=== PATIENT | male | born 1990 | race Hispanic/Latino ===

== ENCOUNTER 2016-12-29 21:44 | Emergency (ER) | payer MEDICAID ==
--- NOTE | 2016-12-30 02:34 | Cat Scan Report ---
FINAL REPORT PROCEDURE: CT HEAD/BRAIN WO CON TECHNIQUE: Computerized tomography of the head was performed without contrast material. HISTORY: fell hit head COMPARISON: No prior studies are available for comparison. FINDINGS: Skull and scalp: Normal. Paranasal sinuses: Normal. Ventricles and subarachnoid spaces: Normal. Cerebrum: No evidence of hemorrhage, acute infarction or mass . Cerebellum and brainstem: No evidence of hemorrhage, acute infarction or mass. Vasculature: Normal. Comments: None. IMPRESSION: Normal Examination
--- NOTE | 2016-12-30 09:18 | Emergency Department Report ---
ED Head Trauma HPI - General Chief complaint: Head Injury Stated complaint: LACERATION TO BACK OF HEAD Time Seen by Provider: 12/30/16 09:14 Source: patient Mode of arrival: Ambulatory Limitations: No Limitations - History of Present Illness Initial comments: Patient states he fell off his skateboard hitting the back of his head. There was no loss of consciousness but he complained of nausea vomiting and weakness per the triage note. He was thereby scanned prior to my arrival. He's been resting comfortably ever since. He is not complaining of headache now or any other complaints. He denies any neck discomfort or other injury. He is no longer nauseated. He does not know when his last tetanus shot was. MD Complaint: head injury -: Gradual Mechanism of Injury: sports related injury Location: occipital Loss of Consciousness: no Previous Trauma to this Area: No Place: outdoors Radiation: none Consistency: now resolved Provoking factors: none known Other Injuries: none Associated Symptoms: denies other symptoms (except as above indicated) - Related Data Home Medications Medication Instructions Recorded Confirmed Last Taken Abilify TAB 300 mg PO DAILY 12/30/16 12/30/16 Unknown Previous Rx's Medication Instructions Recorded Last Taken Type HYDROcodone/APAP 10-325 [[place] 1 each PO Q4-6H PRN #12 tablet 03/27/14 Unknown Rx 10-325 mg TAB] Allergies/Adverse reactions: Allergies Allergy/AdvReac Type Severity Reaction Status Date / Time Sulfa (Sulfonamide Allergy Hives Verified 03/27/14 11:21 Antibiotics) ED Review of Systems ROS: Stated complaint: LACERATION TO BACK OF HEAD Other details as noted in HPI Constitutional: denies: chills, fever Eyes: denies: eye pain, eye discharge, vision change ENT: denies: ear pain, throat pain Respiratory: denies: cough, shortness of breath, wheezing Cardiovascular: denies: chest pain, palpitations Endocrine: no symptoms reported Gastrointestinal: nausea. denies: abdominal pain, diarrhea Genitourinary: denies: urgency, dysuria Musculoskeletal: denies: back pain, joint swelling, arthralgia Skin: denies: rash, lesions Neurological: denies: headache, weakness, paresthesias Psychiatric: denies: anxiety, depression Hematological/Lymphatic: denies: easy bleeding, easy bruising ED Past Medical Hx - Past Medical History Previous Medical History?: Yes Hx Psychiatric Treatment: Yes (Depression) - Surgical History Past Surgical History?: Yes Additional Surgical History: Pins in left finger - Social History Smoking Status: Former Smoker Substance Use Type: None - Medications Home Medications: Home Medications Medication Instructions Recorded Confirmed Last Taken Type HYDROcodone/APAP 10-325 [[place] 1 each PO Q4-6H PRN #12 tablet 03/27/14 Unknown Rx 10-325 mg TAB] Abilify TAB 300 mg PO DAILY 12/30/16 12/30/16 Unknown History ED Physical Exam - General Limitations: No Limitations General appearance: alert, in no apparent distress - Head Head exam: Present: normocephalic, other (there is a small amount of coagulated blood over the wound of the occipital scalp measuring a few millimeters. I do not palpate any laceration or depression.) - Eye Eye exam: Present: normal appearance, PERRL, EOMI. Absent: scleral icterus - ENT ENT exam: Present: normal exam, mucous membranes moist - Neck Neck exam: Present: normal inspection - Respiratory Respiratory exam: Present: normal lung sounds bilaterally. Absent: respiratory distress - Cardiovascular Cardiovascular Exam: Present: regular rate, normal rhythm. Absent: systolic murmur, diastolic murmur, rubs, gallop - GI/Abdominal GI/Abdominal exam: Present: soft, normal bowel sounds. Absent: distended, tenderness, guarding, rebound, rigid - Rectal Rectal exam: Present: deferred - Extremities Exam Extremities exam: Present: normal inspection - Back Exam Back exam: Present: normal inspection - Neurological Exam Neurological exam: Present: alert, oriented X3, CN II-XII intact, normal gait. Absent: motor sensory deficit - Psychiatric Psychiatric exam: Present: normal affect, normal mood - Skin Skin exam: Present: warm, dry, intact, normal color. Absent: rash ED Course Vital Signs 12/29/16 12/30/16 12/30/16 22:04 03:27 07:47 Temperature 97.8 F 98.4 F Pulse Rate 100 H 75 Respiratory 18 18 16 Rate Blood Pressure 108/73 141/92 Blood Pressure [Right] O2 Sat by Pulse 95 100 Oximetry 12/30/16 07:50 Temperature 97.7 F Pulse Rate 66 Respiratory 16 Rate Blood Pressure Blood Pressure 133/77 [Right] O2 Sat by Pulse 97 Oximetry Critical care attestation.: If time is entered above; I have spent that time in minutes in the direct care of this critically ill patient, excluding procedure time. ED Disposition Clinical Impression: Scalp contusion Qualifiers: Encounter type: initial encounter Qualified Code(s): S00.03XA - Contusion of scalp, initial encounter Disposition: TO HOME OR SELFCARE Is pt being admited?: No Does the pt Need Aspirin: No Condition: Stable Instructions: Minor Head Injury (ED), Abrasion (ED) Additional Instructions: Return any acute change or problem. Follow-up with her primary care provider. Referrals: PRIMARY CARE, [Primary Care Provider] - 3-5 Days Time of Disposition: 09:22
[2016-12-30] MEDS ORDERED: BOOSTRIX IM ONE (09:22)
[2016-12-30 09:52] VITALS: BP 117/71
== END 2016-12-30 09:45 | disposition home or self-care (01) ==
LOC: ED 21:44
DX: S00.03XA Contusion of scalp, initial encounter (principal); F32.9 Major depressive disorder, single episode, unspecified; Z87.891 Personal history of nicotine dependence; Z88.2 Allergy status to sulfonamides; W18.09XA Striking against other object with subsequent fall, initial encounter; Y93.73 Activity, racquet and hand sports; Y92.39 Other specified sports and athletic area as the place of occurrence of the external cause; Y99.8 Other external cause status
CPT/HCPCS: 70450; 90471; 90715

== ENCOUNTER 2020-11-19 10:29 | Emergency (ER) | payer MEDICAID ==
[2020-11-19 11:04] VITALS: BP 126/75
--- NOTE | 2020-11-19 11:50 | Emergency Department Report ---
ED General Adult HPI - General Chief complaint: Upper Respiratory Infection Stated complaint: SEVERE SINUSES, MIGRAINE Time Seen by Provider: 11/19/20 11:38 Source: patient Mode of arrival: Ambulatory Limitations: No Limitations - History of Present Illness Initial comments: Patient is a 30-year-old male presents emergency room with complaints of a poss ible sinus infection that began 2 weeks ago. He has associated sinus pressure, pain behind right eye, rhinorrhea, congestion. He denies any fever, vomiting, diarrhea, vision changes, cough, shortness of breath. Past medical history of depression. Allergy to sulfa. - Related Data Home Medications Medication Instructions Recorded Confirmed Last Taken Abilify TAB 300 mg PO DAILY 12/30/16 12/30/16 Unknown Previous Rx's Medication Instructions Recorded Last Taken Type HYDROcodone/APAP 10-325 [[place] 1 each PO Q4-6H PRN #12 tablet 03/27/14 Unknown Rx 10-325 mg TAB] Amoxicillin/Potassium Clav 1 each PO BID 10 Days #20 tablet 11/19/20 Unknown Rx [Augmentin 500-125 Tablet] Fluticasone [Flonase] 1 spray NS QDAY #1 bottle 11/19/20 Unknown Rx guaiFENesin ER [Mucinex ER] 600 mg PO Q12H #14 tablet.er 11/19/20 Unknown Rx Allergies Allergy/AdvReac Type Severity Reaction Status Date / Time Sulfa (Sulfonamide Allergy Hives Verified 11/19/20 11:00 Antibiotics) ED Review of Systems ROS: Stated complaint: SEVERE SINUSES, MIGRAINE Other details as noted in HPI Comment: All other systems reviewed and negative ED Past Medical Hx - Past Medical History Hx Psychiatric Treatment: Yes (Depression) - Surgical History Additional Surgical History: Pins in left finger - Social History Smoking Status: Never Smoker Substance Use Type: None - Medications Home Medications: Home Medications Medication Instructions Recorded Confirmed Last Taken Type HYDROcodone/APAP 10-325 [[place] 1 each PO Q4-6H PRN #12 tablet 03/27/14 Unknown Rx 10-325 mg TAB] Abilify TAB 300 mg PO DAILY 12/30/16 12/30/16 Unknown History Amoxicillin/Potassium Clav 1 each PO BID 10 Days #20 tablet 11/19/20 Unknown Rx [Augmentin 500-125 Tablet] Fluticasone [Flonase] 1 spray NS QDAY #1 bottle 07/13/21 Unknown Rx guaiFENesin ER [Mucinex ER] 600 mg PO Q12H #14 tablet.er 11/19/20 Unknown Rx ED Physical Exam - General Limitations: No Limitations General appearance: alert, in no apparent distress - Head Head exam: Present: atraumatic, normocephalic - Eye Eye exam: Present: normal appearance - ENT ENT exam: Present: normal orophraynx, mucous membranes moist, TM's normal bilaterally, normal external ear exam, other (mucus drainage present in the right naris, there is right frontal sinus ttp) - Respiratory Respiratory exam: Present: normal lung sounds bilaterally. Absent: respiratory distress, wheezes, rales, rhonchi, stridor, chest wall tenderness, accessory muscle use, decreased breath sounds, prolonged expiratory - Cardiovascular Cardiovascular Exam: Present: regular rate, normal rhythm, normal heart sounds. Absent: systolic murmur, diastolic murmur, rubs, gallop - Neurological Exam Neurological exam: Present: alert, oriented X3 - Psychiatric Psychiatric exam: Present: normal affect, normal mood - Skin Skin exam: Present: warm, dry, intact ED Course Vital Signs 11/19/20 11:02 Temperature 99.0 F Pulse Rate 76 Respiratory 20 Rate Blood Pressure 126/75 O2 Sat by Pulse 100 Oximetry ED Medical Decision Making - Medical Decision Making Patient is a 30-year-old male presents emergency room with complaints of a possible sinus infection that began 2 weeks ago. He has associated sinus pressure, pain behind right eye, rhinorrhea, congestion. He denies any fever, vomiting, diarrhea, vision changes, cough, shortness of breath. Past medical history of depression. Allergy to sulfa. Vitals are normal. On exam:mucus drainage present in the right naris, there is right frontal sinus ttp. Examination appears consistent with acute sinusitis, symptoms have been ongoing greater than 10 days, will cover patient with antibiotics. Advised patient Please take medication as prescribed. Please follow-up with a primary care doctor. Return to emergency room for any new or worsening symptoms. Critical care attestation.: If time is entered above; I have spent that time in minutes in the direct care of this critically ill patient, excluding procedure time. ED Disposition Clinical Impression: Acute sinusitis Qualifiers: Sinusitis location: frontal Recurrence: non-recurrent Qualified Code(s): J01.10 - Acute frontal sinusitis, unspecified Disposition: DC-01 TO HOME OR SELFCARE Is pt being admited?: No Does the pt Need Aspirin: No Condition: Stable Instructions: Sinusitis, Adult, [id number] Additional Instructions: Please take medication as prescribed. Please follow-up with a primary care doctor. Return to emergency room for any new or worsening symptoms. Prescriptions: Amoxicillin/Potassium Clav [Augmentin 500-125 Tablet] 1 each PO BID 10 Days #20 tablet Fluticasone [Flonase] 1 spray NS QDAY #1 bottle guaiFENesin ER [Mucinex ER] 600 mg PO Q12H #14 tablet.er Referrals: AWA MASSEY MD [Staff Physician] - 3-5 Days [facility] [Provider Group] - 3-5 Days Forms: Work/School Release Form(ED) Time of Disposition: 11:48 Print Language: KOREAN
== END 2020-11-19 12:38 | disposition home or self-care (01) ==
LOC: ED 10:29
DX: J01.90 Acute sinusitis, unspecified (principal); F32.9 Major depressive disorder, single episode, unspecified; Z98.890 Other specified postprocedural states; Z79.2 Long term (current) use of antibiotics; Z79.899 Other long term (current) drug therapy; Z88.2 Allergy status to sulfonamides
CPT/HCPCS: 99282